=== PATIENT | male | born 1950 | race Caucasian/White ===

== ENCOUNTER 2023-12-21 15:52 | Emergency (ER) | payer OTHER, SELFPAY ==
[2023-12-21] VITALS (14 sets, daily range): BP systolic 122–178; BP diastolic 69–92; PULSE 60–87; RESP 14–20; TEMP 36.4–36.8; O2SAT 93–97; BMI 29.0
--- NOTE | 2023-12-21 16:23 | CT_ITS ---
PROCEDURE INFORMATION: Exam: CTA Abdominal Aorta and Bilateral Lower Extremities (Run-off) With Contrast Exam date and time: 12/21/2023 6:29 PM Age: 73 years old Clinical indication: Other: Rle purple toe syndrome; Prior surgery; Surgery date: 6+ months; Surgery type: Kidney & appendix removed. Knee replacement. TECHNIQUE: Imaging protocol: Computed tomographic angiography of the of the abdominal aorta, pelvis and bilateral lower extremities with contrast. 3D rendering (Not supervised by radiologist): MIP and/or 3D reconstructed images were created by the technologist. Radiation optimization: All CT scans at this facility use at least one of these dose optimization techniques: automated exposure control; mA and/or kV adjustment per patient size (includes targeted exams where dose is matched to clinical indication); or iterative reconstruction. Contrast material: ISOVUE; Contrast volume: 120 ml; Contrast route: INTRAVENOUS (IV); COMPARISON: No relevant prior studies available. FINDINGS: Aorta: No aortic aneurysm. No aortic dissection. Celiac trunk and mesenteric arteries: No occlusion or significant stenosis. Renal arteries: No occlusion or significant stenosis. Right iliac arteries: No occlusion or significant stenosis. Right femoral/popliteal arteries: Moderate atherosclerotic irregularity. No occlusion or significant stenosis. Right infrapopliteal arteries: Moderate atherosclerotic irregularity. No occlusion or significant stenosis. Posterior tibial dominant runoff to the right foot. Left iliac arteries: No occlusion or significant stenosis. Left femoral/popliteal arteries: Moderate atherosclerotic irregularity. No occlusion or significant stenosis. Left infrapopliteal arteries: Moderate atherosclerotic irregularity. No occlusion or significant stenosis. Posterior tibial dominant runoff to the left foot. Liver: No mass. Gallbladder and bile ducts: Cholelithiasis. Pancreas: Unremarkable. No mass. No ductal dilation. Spleen: Normal. No splenomegaly. Adrenal glands: Normal. No mass. Kidneys and ureters: Left nephrectomy. Stomach and bowel: Unremarkable. No obstruction. No mucosal thickening. Appendix: Appendectomy. Urinary bladder: Unremarkable. No mass. Reproductive: Unremarkable as visualized. Intraperitoneal space: Unremarkable. No free air. No significant fluid collection. Lymph nodes: No lymphadenopathy. Bones/joints: Right total knee arthroplasty. Soft tissues: Unremarkable. IMPRESSION: 1. No significant occlusive disease detected by CTA. 2. Etiology of purple toe syndrome not elucidated. 3. Left nephrectomy. 4. Appendectomy. 5. Right total knee arthroplasty.
--- NOTE | 2023-12-21 16:29 | ECG_ITS ---
APPROVED REPORT Exam: Resting ECG HR:61 bpm ECG Measurements Heart Rate 61 AXES VT 234 P 87 QRSd 101 QRS -2 QT 401 T 79 QTc 405 Conclusion SINUS RHYTHM WITH FIRST DEGREE AV BLOCK NONSPECIFIC ST & T-WAVE ABNORMALITY ABNORMAL ECG UNCONFIRMED REPORT Electronically signed by : Simon Falcon MD 12/22/2023 16:40:24
--- NOTE | 2023-12-21 16:30 | ED_ITS ---
Discharge Plan Disposition Chief Complaint: PAIN Referrals Follow up/Referrals: Provider,Sami, [Primary Care Provider] - See instructions Clinical Impressions Clinical Impression: Blue toe syndrome, Critical limb ischemia of right lower extremity Discharge ED Provider: Dominik Sauceda General Adult HPI General Chief complaint: PAIN Stated complaint: right big toe pain diabetic Time Seen by Provider: 12/21/23 16:08 Mode of Arrival: Wheelchair Source of Information: Patient Limitations: No Limitations Description of Symptoms (Recalled from ER Triage Doc. by RN): Patient reports pain in right big toe for 1 week. Denies injury to toe. [facility]. History of Present Illness HPI narrative: Patient is a 73-year-old man with a history of coronary artery disease on low- dose aspirin no other anticoagulants or antiplatelet agents also with diabetes who presents today with right foot pain and discoloration of his great toe. The pain began last week subsequently the discoloration of the toe persisted. Pain is severe did not have any type of claudication prior to this. No history of peripheral artery disease that he is aware of. No fevers chills or other signs or symptoms of infection from historical standpoint. Related Data Allergies Allergy/AdvReac Type Severity Reaction Status Date / Time No Known Drug Allergies Allergy Verified 12/21/23 16:[address] [facility] Disclaimer: The information contained in this section may have been updated after the patient was seen, as this information can be updated by other users. Social History Smoking Status: Former smoker alcohol intake: never current occupational status: other Travel in the last 8 weeks: None ROS Obtained: Yes All systems reviewed & no additional complaints except as documented Physical Exam General General appearance: alert Respiratory Respiratory exam: Present normal lung sounds bilaterally Cardiovascular Cardiovascular exam: Present other (Right foot is cooler than the left there is purple/blue discoloration of the right great toe unable to palpate pulses on the right foot there is 1+ PT pulse on the left nonpalpable DP pulse on the left) Neurological Exam Neurological exam: Present alert Medical Decision Making Isaías Inquiry Pt receiving controlled substance: No Vital Signs: 12/21/23 15:53 12/21/23 16:30 12/21/23 17:00 Temperature 97.6 F Temperature Source Oral Pulse Rate 67 67 Pulse Rate [Right Radial] 87 Respiratory Rate 18 Blood Pressure 135/71 141/75 H Blood Pressure [Right Arm] 140/81 Blood Pressure Mean 90 89 Blood Pressure Mean [Right Arm] 100 Blood Pressure Source [Right Arm] Automatic Cuff Blood Pressure Position [Right Arm] Sitting 02 Sat by Pulse Oximetry 96 97 96 Oxygen Delivery Method Room Air 12/21/23 17:30 12/21/23 18:00 12/21/23 18:30 Temperature Temperature Source Pulse Rate 61 60 68 Pulse Rate [Right Radial] Respiratory Rate 20 19 Blood Pressure 144/72 H 148/74 H 151/80 H Blood Pressure [Right Arm] Blood Pressure Mean 84 89 90 Blood Pressure Mean [Right Arm] Blood Pressure Source [Right Arm] Blood Pressure Position [Right Arm] 02 Sat by Pulse Oximetry 96 93 L 94 L Oxygen Delivery Method 12/21/23 19:01 12/21/23 19:30 12/21/23 20:00 Temperature Temperature Source Pulse Rate 71 63 60 Pulse Rate [Right Radial] Respiratory Rate 18 15 16 Blood Pressure 178/85 H 144/71 H 146/77 H Blood Pressure [Right Arm] Blood Pressure Mean 96 95 87 Blood Pressure Mean [Right Arm] Blood Pressure Source [Right Arm] Blood Pressure Position [Right Arm] 02 Sat by Pulse Oximetry 97 96 95 Oxygen Delivery Method Room Air Room Air Room Air 12/21/23 20:30 12/21/23 21:00 Temperature Temperature Source Pulse Rate 60 61 Pulse Rate [Right Radial] Respiratory Rate 16 18 Blood Pressure 122/92 H 166/87 H Blood Pressure [Right Arm] Blood Pressure Mean 99 97 Blood Pressure Mean [Right Arm] Blood Pressure Source [Right Arm] Blood Pressure Position [Right Arm] 02 Sat by Pulse Oximetry 95 95 Oxygen Delivery Method Room Air Room Air Lab Data Lab results reviewed: Yes I reviewed the patient's lab results. Lab Results 12/21/23 17:21: WBC 5.6, RBC 4.27 L, Hgb 13.0 L, Hct 39.5 L, MCV 92.5, MCH 30.5, MCHC 33.0, RDW 13.8, Plt Count 144, MPV 9.8, Neut % (Auto) 52.7, Lymph % (Auto) 36.1, Ector % (Auto) 6.7, Eos % (Auto) 4.0, Baso % (Auto) 0.4, Neut # (Auto) 3.0, Lymph # (Auto) 2.0, Ector # (Auto) 0.4, Eos # (Auto) 0.2, Baso # (Auto) 0.0, PT 12.3, INR 1.15 H, APTT 19.1 L 12/21/23 17:21: APTT 19.1 L, Sodium 141, Potassium 4.6, Chloride 108 H, Carbon Dioxide 27, Anion Gap 10.6, BUN 14, Creatinine 1.10, Estimated Creat Clear 80, Estimated GFR 65, Est GFR ( Amer) 79, Glucose 73 L, Calcium 9.4, Total Bilirubin 0.3, AST 25, ALT 20, Alkaline Phosphatase 80, Total Creatine Kinase 33 L, Total Protein 6.5, Albumin 4.0, Globulin 2.5, Albumin/Globulin Ratio 1.6 12/21/23 17:55: Lactate 1.5 12/21/23 17:21 12/21/23 17:21 Orders (Tests/Meds): ED MEDICATIONS Generic Name Dose Route Start Last Admin Trade Name Freq PRN Reason Stop Dose Admin Heparin Sodium/Dextrose 500 mls @ 35 mls/hr 12/21/23 16:45 12/21/23 16:55 Heparin 25,000 Units In D5w 500ml Premix IV 01/20/24 16:44 35 mls/hr .[id number] JACKIE Administration 1,750 UNIT/HR Miscellaneous 1 each 12/21/23 16:30 12/21/23 16:35 Heparin Drip Consult NOTAPPLIC 01/20/24 16:29 1 each CONSULT PHARMACY JACKIE Administration Sodium Chloride 10 ml 12/21/23 18:54 12/21/23 18:58 Sodium Chloride 0.9% 10ml Syr (Rad Only) IV 01/20/24 18:53 10 ml NEEDED PRN Administration Maintain IV Site Discontinued Medications Generic Name Dose Route Start Last Admin Trade Name Freq PRN Reason Stop Dose Admin Heparin Sodium (Porcine) 7,700 unit 12/21/23 16:45 12/21/23 16:54 Heparin Sodium 5,000 Unit/Ml Vial IV 12/21/23 16:46 7,700 unit ONCE ONE Administration Heparin Sodium (Porcine) 4,000 unit 12/21/23 18:30 12/21/23 18:28 Heparin Sodium 5,000 Unit/Ml Vial IV 12/21/23 18:31 4,000 unit ONCE ONE Administration Lactated Ringer's 500 mls @ 999 mls/hr 12/21/23 16:30 12/21/23 16:37 Lactated Ringer's 1000 Ml Bag IV 12/21/23 17:00 999 mls/hr .[id number] JACKIE Administration Iopamidol 120 ml 12/21/23 18:54 12/21/23 18:57 Iopamidol-370 (76%);100ml Bottle IV 12/21/23 18:55 120 ml ONCE ONE Administration Morphine Sulfate 4 mg 12/21/23 16:23 12/21/23 16:38 Morphine 4mg/Ml Syringe IV 12/21/23 16:24 4 mg ONCE ONE Administration Ondansetron HCl 4 mg 12/21/23 16:23 12/21/23 16:37 Ondansetron 4mg/2ml Vial IV 12/21/23 16:24 4 mg ONCE ONE Administration Sodium Chloride 100 ml 12/21/23 18:54 12/21/23 18:58 0.9 % Sodium Chloride 50 Ml Vial IV 12/21/23 18:55 100 ml ONCE ONE Administration ORDERS Category Date Time Status CT angio abdomen/femoral Stat Cat Scan 12/21/23 16:23 Completed CBC w/Auto Diff [Complete Blood Count Auto Diff] Stat Lab 12/21/23 17:21 Completed CK [Creatine Kinase] Stat Lab 12/21/23 17:21 Completed CMP [Comprehensive Metabolic Panel] Stat Lab 12/21/23 17:21 Completed Heparin drip PTT [PTT Heparin (inpatient only)] Stat Lab 12/21/23 23:00 Ordered Lactic Acid Stat Lab 12/21/23 17:55 Completed PT/PTT Stat Lab 12/21/23 17:21 Completed PTT Heparin (inpatient only) Stat Lab 12/21/23 17:21 Completed Medical Decision Narrative: 73-year-old man with above history. Clinically this is consistent with blue toe syndrome most likely from atherosclerotic plaques that embolized into the distal peripheral arterial system. I was able to get a triphasic PT pulse on the left but with a Doppler was unable to find any pulses in the right foot. There does seem to be some good capillary refill in his other toes and he is still able to move his extremity does not have any significant sensation loss I suspect this is not a large vessel occlusion. However this is most likely the diagnosis is stated above. This is not consistent with an infectious process. Will get a CT angio abdomen pelvis with runoff and initiate unfractionated heparin bolus and infusion. The patient is a [facility] patient will discuss transfer possibilities after this initial workup is complete. EKG performed which I personally interpreted which shows a ventricular rate of 61 MO interval of 234 consistent with a first-degree AV block no dropped beats, no acute ischemic changes noted there is a nonspecific interventricular conduction delay no other significant conduction abnormality. 1. No significant occlusive disease detected by CTA. 2. Etiology of purple toe syndrome not elucidated. 3. Left nephrectomy. 4. Appendectomy. 5. Right total knee arthroplasty. CT results as above I also personally interpreted the images. No significant occlusive disease. No definitive source of embolic phenomenon noted. However the arch of the aorta was not identified patient will need to have further evaluation for possible embolic source including echo and possible CTA of the chest. He has remained stable on serial assessments no progressive worsening from a motor or sensory standpoint. I spoke with Dr. Bailey Marie who is a vascular surgeon at the [facility] and also spoke with Dr. Chico Lopez to the hospital medicine service attending. They agree to except the patient for further evaluation and treatment. Family is aware of this plan and agreeable. Critical Care Critical Care Time Critical Care Time: Yes Attestation: On 12/21/23, the high probability of a clinically significant, sudden or life threatening deterioration of the following system(s) required my full and direct attention, intervention and personal management. The time I documented below is in addition to time spent performing reported procedures but includes the following listed in this critical care notation. Total Time Total Critical Care Time: 35
[2023-12-21] MEDS: HEPARIN DRIP CONSULT 1 EACH NOTAPPLIC (16:35)
--- NOTE | 2023-12-21 16:36 | PC.NURSE ---
Contacted [facility] pharmacy and spoke with Beck for Heparin drip consult, he states he will enter all orders into MAR.
[2023-12-21] MEDS: ONDANSETRON 4MG/2ML VIAL 4 MG IV (16:37)
[2023-12-21] MEDS: LACTATED RINGERS 1000ML 500 ML 999 ML IV (16:37)
[2023-12-21] MEDS: MORPHINE 4MG/ML SYRINGE 4 MG IV (16:38)
[2023-12-21] MEDS: HEPARIN SODIUM 5,000 UNIT/ML VIAL 7700 UNIT IV (16:54)
[2023-12-21] MEDS: HEPARIN SODIUM,PORCINE/D5W 500 ML 35 UNIT IV (16:55)
[2023-12-21 17:33] LABS: Basophils % 0.4 % (0.1-2.0); Eosinophils # 0.2 K/mm3 (0.0-0.4); Hematocrit 39.5 % (42.0-52.0); Lymphocytes % 36.1 % (10-50); Mean Corpuscular Hemoglobin 30.5 pg (27.0-31.2); Mean Corpuscular Volume 92.5 fl (80-94); Mean Platelet Volume 9.8 fl (7.4-10.4); Monocytes # 0.4 K/mm3 (0.1-1.0); Monocytes % 6.7 % (1.7-9.3); Neutrophils % 52.7 % (37.0-80.0); Platelet Count 144 K/mm3 (142-424); Red Blood Count 4.27 M/mm3 (4.60-6.20); Red Cell Distribution Width 13.8 % (11.5-17.5); White Blood Count 5.6 K/mm3 (4.8-10.8)
[2023-12-21 18:00] LABS: Alanine Aminotransferase 20 U/L (12-78); Albumin/Globulin Ratio 1.6 (1.1-1.8); Alkaline Phosphatase 80 U/L (38-126); Anion Gap 10.6 mEq/L (5-15); Aspartate Amino Transferase 25 U/L (17-59); Bilirubin,Total 0.3 mg/dl (0.2-1.3); Blood Urea Nitrogen 14 mg/dl (9-20); Calcium 9.4 mg/dl (8.4-10.2); Carbon Dioxide 27 mmol/L (22.0-30.0); Chloride 108 mmol/L (98-107); Creatine Kinase 33 U/L (55-170); Creatinine Clearance Estimated 80 mL/min (50-200); Estimated Glomerular Filt Rate 65 ml/min (>60); GFR (African American) 79 ML/MIN (>60); Globulin 2.5 g/dL (1.3-3.2); Glucose 73 mg/dl (74-100); Potassium 4.6 mmoL/L (3.5-5.1); Sodium 141 mmol/L (136-145); Total Protein,Serum 6.5 g/dl (6.3-8.2)
[2023-12-21 18:10] LABS: Activated Partial Thrombo Time 19.1 seconds (22.8-30.6); INR 1.15 (0.9-1.1); Prothrombin Time 12.3 seconds (10.1-12.5)
[2023-12-21 18:11] LABS: PTT Heparin (inpatient only) 19.1 Seconds (23.6-34.0)
[2023-12-21 18:17] LABS: Lactic Acid 1.5 mmol/L (0.7-2.1)
--- NOTE | 2023-12-21 18:25 | PC.NURSE ---
Spoke with Sascha from [facility] pharmacy and reports he added another heparin bolus, no change to his drip at this time. He also entered a redraw of PTT in 4 hours.
[2023-12-21] MEDS: HEPARIN SODIUM 5,000 UNIT/ML VIAL 4000 UNIT IV (18:28)
[2023-12-21] MEDS: IOPAMIDOL-370 (76%);100ML BOTTLE 120 ML IV (18:57)
[2023-12-21] MEDS: SODIUM CHLORIDE 0.9% 10ML SYR (RAD ONLY) 10 ML IV (18:58)
[2023-12-21] MEDS: 0.9 % SODIUM CHLORIDE 50 ML VIAL 100 ML IV (18:58)
--- NOTE | 2023-12-21 18:58 | PC.NURSE ---
pt back from radiology
--- NOTE | 2023-12-21 20:01 | PC.NURSE ---
[facility] at [facility].
--- NOTE | 2023-12-21 20:12 | PC.NURSE ---
waiting on the [facility] to call back at this time.
--- NOTE | 2023-12-21 21:06 | PC.NURSE ---
[facility] RETURNED CALL, ON PHONE. SPEAKING WITH VASCULAR SURGEON-VALERY SPICER
--- NOTE | 2023-12-21 21:20 | PC.NURSE ---
[facility]p with the [facility] at this time.
--- NOTE | 2023-12-21 21:24 | PC.NURSE ---
[facility] [place] by [facility] per Dr Sauceda. CR
[2023-12-21 22:58] LABS: Coronavirus 19, PCR Not Detected (NotDetected); Influenza A, PCR Not Detected (NotDetected); Influenza B, PCR Not Detected (NotDetected)
--- NOTE | 2023-12-21 23:05 | PC.NURSE ---
called EMS for transfer to [facility] at this time.
--- NOTE | 2023-12-21 23:05 | PC.NURSE ---
Report called to MORENO Heredia at [facility] 3rd floor for room 340. [phone]
--- NOTE | 2023-12-21 23:35 | PC.NURSE ---
EMS here for patient and leaving.
== END 2023-12-21 23:35 | disposition other institution (70) ==
PROVIDERS: Emergency Provider Student in an Organized Health Care Education/Training Program
DX: E11.621 Type 2 diabetes mellitus with foot ulcer (principal); L97.529 Non-pressure chronic ulcer of other part of left foot with unspecified severity; I75.021 Atheroembolism of right lower extremity; I25.10 Atherosclerotic heart disease of native coronary artery without angina pectoris; I44.0 Atrioventricular block, first degree; Z87.891 Personal history of nicotine dependence
CPT/HCPCS: 36415; 75635; 80053; 82550; 83605; 85025; 85610; 85730; 87636; 93005; 96374; 96375; 96376; 99291; J2405; Q9967